=== PATIENT | female | born 1960 | race Caucasian/White ===

== ENCOUNTER 2017-10-04 12:20 | Day surgery (SDC) | payer OTHER | END 2017-10-04 17:38 | disposition home or self-care (01) | LOC: GIL 12:20 | DX: D12.6 Benign neoplasm of colon, unspecified (principal); K31.9 Disease of stomach and duodenum, unspecified; K29.70 Gastritis, unspecified, without bleeding; K44.9 Diaphragmatic hernia without obstruction or gangrene; K21.9 Gastro-esophageal reflux disease without esophagitis; K57.90 Diverticulosis of intestine, part unspecified, without perforation or abscess without bleeding | CPT/HCPCS: 43239; 88305; 88312 ==

== ENCOUNTER 2017-11-05 09:40 | Day surgery (SDC) | payer OTHER ==
[~2017-11-05 09:40] MED LIST: CEFAZOLIN 2 GM/50 ML (PMX) 50 ML IVPB; LABETALOL HCL 20MG INJ; LACTATED RINGER'S 1,000 ML IV*; ROCURONIUM 50 MG INJ
[2017-11-05] MEDS ORDERED: GELATIN SIZE 100 SPONGE (11:55)
[2017-11-05] MEDS ORDERED: BUPIVACAINE 0.25% (MPF) 30 ML INJ (11:55)
[2017-11-05] MEDS ORDERED: DIPHENHYDRAMINE 25 MG CAP PO (12:00)
[2017-11-05] MEDS ORDERED: DIPHENHYDRAMINE 50 MG INJ IV ×2 (12:00→15:30)
[2017-11-05] MEDS ORDERED: HYDROmorphONE 0.5 MG/0.5 ML SYG IV (12:00)
[2017-11-05] MEDS ORDERED: CYCLOBENZAPRINE 10 MG TAB PO (12:00)
[2017-11-05] MEDS ORDERED: PROCHLORPERAZINE 10 MG TAB PO (12:00)
[2017-11-05] MEDS ORDERED: ACETAMINOPHEN 325 MG TAB PO (12:00)
[2017-11-05] MEDS ORDERED: ONDANSETRON 4 MG INJ IV ×2 (12:00→15:30)
[2017-11-05] MEDS ORDERED: NALOXONE (0.4 MG/ML) INJ IV (12:00)
[2017-11-05] MEDS ORDERED: HYDROCODONE/APAP (5/325) TAB PO ×2 (12:00)
[2017-11-05] MEDS ORDERED: SUCCINYLCHOLINE CHLORIDE 100 MG/5 ML SYG IV (12:23)
[2017-11-05] MEDS ORDERED: NEOSTIGMINE 3 MG/3 ML SYRINGE ×2 (12:23→14:57)
[2017-11-05] MEDS ORDERED: LIDOCAINE 2% (SDV) 5 ML INJ (12:23)
[2017-11-05] MEDS ORDERED: PROPOFOL 20 ML (12:23)
[2017-11-05] MEDS ORDERED: ROCURONIUM 50 MG INJ (12:23)
[2017-11-05] MEDS ORDERED: GLYCOPYRROLATE 0.4 MG INJ ×3 (12:23→14:57)
[2017-11-05] MEDS ORDERED: MEPERIDINE 100 MG INJ (12:23)
[2017-11-05] MEDS ORDERED: hydrALAzine 20 MG INJ (13:08)
[2017-11-05] MEDS: POLYMYXIN/BACITRACIN 1L IRRIG (13:32)
[2017-11-05] MEDS: BUPIVACAINE 0.25%/EPI (SDV) 30 ML INJ INJ (13:32)
[2017-11-05] MEDS: THROMBIN 5000 UNIT VIAL (14:20)
[2017-11-05] MEDS: CA CHLORIDE 10% 10 ML SYRINGE (14:20)
[2017-11-05] MEDS ORDERED: METOCLOPRAMIDE 10 MG INJ (14:57)
[2017-11-05] MEDS ORDERED: ONDANSETRON 4 MG INJ (14:57)
[2017-11-05] MEDS ORDERED: hydrALAzine 20 MG INJ IV (15:30)
[2017-11-05] MEDS ORDERED: MIDAZOLAM 1 MG/ML 2 ML INJ IV (15:30)
[2017-11-05] MEDS ORDERED: FENTAnyl 50 MCG/ML VIAL IV ×3 (15:30)
[2017-11-05] MEDS ORDERED: MEPERIDINE 25 MG INJ IV (15:30)
[2017-11-05] MEDS ORDERED: LABETALOL HCL 20MG INJ IV (15:30)
[2017-11-05] MEDS ORDERED: METOCLOPRAMIDE 10 MG INJ IV (15:30)
[2017-11-05] MEDS ORDERED: HYDROmorphONE (0.2 MG/ML) 10ML SYG IV ×3 (15:30)
[2017-11-05] MEDS ORDERED: EPHEDrine SULFATE 50 MG/5 ML SYG IV (15:30)
[2017-11-05] MEDS ORDERED: OXYCODONE/ACETAMINOPHEN (5/325) TAB PO ×2 (15:30)
== END 2017-11-05 18:06 | disposition home or self-care (01) ==
LOC: REC 09:40 → SDS 09:40
DX: M47.892 Other spondylosis, cervical region (principal); M48.02 Spinal stenosis, cervical region
CPT/HCPCS: 20939; 72050; 86850; 86900; 86901; 86999; 88304